=== PATIENT | male | born 1985 | race Hispanic/Latino ===

== ENCOUNTER 2018-10-09 01:47 | Emergency (ER) | payer OTHER ==
[2018-10-09] MEDS ORDERED: TORADOL IV ONE (01:53)
--- NOTE | 2018-10-09 02:57 | Emergency Department Report ---
ED General Adult HPI - General Chief complaint: Back Pain/Injury Stated complaint: FLANK PAIN Time Seen by Provider: 10/09/18 02:44 Source: patient, family, RN notes reviewed Mode of arrival: Ambulatory Limitations: No Limitations - History of Present Illness Initial comments: This is a 32-year-old gentleman, not known to this provider previously, does not have a local primary care doctor, denies chronic medical conditions, presented to the emergency room with a history of resolved flank pain that radiates to the right suprapubic region. It started suddenly at 12:30 this evening. It came in "waves", and was sharp, and did not have any relief, regardless of what position the patient. Patient was given ketorolac in the emergency room, which improved his symptoms. He denies all pain and complaints at this point in time. He denies hematemesis, bright red blood per rectum, testicular pain, irritative/obstructive urinary symptoms. As far the patient knows, he has never had an episode of kidney stone. -: Sudden Location: abdomen, right Radiation: abdomen Severity scale (0 -10): 10 Quality: aching, other (as per history of present illness) Consistency: now resolved, colicky Improves with: medication Associated Symptoms: denies other symptoms (patient denies all other complaints at this point in time.) - Related Data Previous Rx's Medication Instructions Recorded Last Taken Type Acetaminophen [Tylenol Arthritis] 650 mg PO Q6HR PRN #30 tablet.er 10/09/18 Unknown Rx Ibuprofen [Motrin] 600 mg PO Q8H PRN #30 tablet 10/09/18 Unknown Rx Ondansetron [Zofran Odt] 4 mg PO Q8HR PRN #20 tab.rapdis 10/09/18 Unknown Rx Tamsulosin [Flomax] 0.4 mg PO QDAY #30 cap 10/09/18 Unknown Rx oxyCODONE [Roxicodone] 5 mg PO Q6HR PRN #15 tablet 10/09/18 Unknown Rx Allergies Allergy/AdvReac Type Severity Reaction Status Date / Time No Known Allergies Allergy Verified 10/09/18 02:45 ED Review of Systems ROS: Stated complaint: FLANK PAIN Other details as noted in HPI Comment: All other systems reviewed and negative (initially had abdominal pain, flank pain, now resolved) ED Past Medical Hx - Past Medical History Previous Medical History?: No - Surgical History Past Surgical History?: Yes Additional Surgical History: Cyst removed from thyroid - Social History Smoking Status: Never Smoker Substance Use Type: None - Medications Home Medications: Home Medications Medication Instructions Recorded Confirmed Last Taken Type Acetaminophen [Tylenol Arthritis] 650 mg PO Q6HR PRN #30 tablet.er 10/09/18 Unknown Rx Ibuprofen [Motrin] 600 mg PO Q8H PRN #30 tablet 10/09/18 Unknown Rx Ondansetron [Zofran Odt] 4 mg PO Q8HR PRN #20 tab.rapdis 10/09/18 Unknown Rx Tamsulosin [Flomax] 0.4 mg PO QDAY #30 cap 10/09/18 Unknown Rx oxyCODONE [Roxicodone] 5 mg PO Q6HR PRN #15 tablet 10/09/18 Unknown Rx ED Physical Exam - General Limitations: No Limitations General appearance: alert, in no apparent distress - Head Head exam: Present: atraumatic, normocephalic - Eye Eye exam: Present: normal appearance, EOMI. Absent: nystagmus - ENT ENT exam: Present: normal exam, normal orophraynx, mucous membranes moist, normal external ear exam - Neck Neck exam: Present: normal inspection, full ROM. Absent: tenderness, meningismus - Respiratory Respiratory exam: Present: normal lung sounds bilaterally. Absent: respiratory distress, wheezes, rales, chest wall tenderness, accessory muscle use, decreased breath sounds, prolonged expiratory - Cardiovascular Cardiovascular Exam: Present: regular rate, normal rhythm, normal heart sounds. Absent: bradycardia, tachycardia, irregular rhythm, systolic murmur, diastolic m urmur, rubs, gallop - GI/Abdominal GI/Abdominal exam: Present: soft. Absent: distended, tenderness, guarding, rebound, rigid, pulsatile mass - Rectal Rectal exam: Present: deferred - exam: Present: normal inspection, other (chaperoned by JENNIFER Kaur). Absent: testicular tenderness External exam: Present: normal external exam, other (there is no testicular tenderness. There is normal testicular lie bilaterally. There is normal cremasteric reflex bilaterally.) - Extremities Exam Extremities exam: Present: normal inspection, full ROM, other (2+ pulses noted in the bilateral upper, lower extremities. Compartments soft. No long bony tenderness. The pelvis is stable.). Absent: tenderness, pedal edema, joint swelling, calf tenderness - Back Exam Back exam: Present: normal inspection, full ROM. Absent: tenderness, CVA tenderness (R), paraspinal tenderness, vertebral tenderness - Neurological Exam Neurological exam: Present: alert, oriented X3, CN II-XII intact, other (Extraocular movements intact. Tongue midline. No facial droop. Facial sensation intact to light touch in the V1, V2, V3 distribution bilaterally. 5 and 5 strength in 4 extremities.. Sensation is intact to light touch in 4 extremities.). Absent: motor sensory deficit - Psychiatric Psychiatric exam: Present: normal affect, normal mood - Skin Skin exam: Present: warm, dry, intact, normal color. Absent: rash ED Course Vital Signs 10/09/18 10/09/18 10/09/18 01:51 02:33 04:28 Temperature 99.0 F 98.5 F 98.5 F Pulse Rate 69 65 68 Respiratory 16 25 H 18 Rate Blood Pressure 117/58 129/83 Blood Pressure 129/83 131/78 [Left] O2 Sat by Pulse 100 100 98 Oximetry - Reevaluation(s) Reevaluation #1: 10/09/18 03:26 Differential diagnosis, including but not limited to: Renal colic, AAA, constipation, appendicitis Assessment and plan: 32-year-old gentleman with probable first episode of renal colic. He has no symptoms at this point in time. He has no abdominal tenderness, no pulsatile abdominal mass, and no lower extremity physical exam fi ndings or complaints to suggest epidural compression syndrome. No abdominal tenderness, therefore doubt Appendicitis. He has a benign abdominal examination, and a benign gentle examination. Screen ing laboratory studies, urinalysis, CT scan of the abdomen and pelvis pending. Reevaluation #2: 10/09/18 03:36 Now having pain. Hydromorphone has been ordered. Reevaluation #3: 10/09/18 05:15 Urinalysis suggestive of renal colic. Laboratory studies otherwise unremarkable. CT scan consistent with renal colic. Patient feeling improved and tolerating liquid feeds at this time. He will be discharged with pain medication, nausea medication, medical expulsive therapy, and instructions to follow up with outpatient urology. ED Medical Decision Making - Lab Data Result diagrams: 10/09/18 03:00 10/09/18 03:00 Vital Signs 10/09/18 10/09/18 01:51 02:33 Temperature 99.0 F 98.5 F Pulse Rate 69 65 Respiratory 16 25 H Rate Blood Pressure 117/58 129/83 Blood Pressure 129/83 [Left] O2 Sat by Pulse 100 100 Oximetry Lab Results 10/09/18 Range/Units 03:00 WBC 8.6 (4.5-11.0) K/mm3 RBC 5.31 H (3.65-5.03) M/mm3 Hgb 15.0 (11.8-15.2) gm/dl Hct 44.6 (35.5-45.6) % MCV 84 (84-94) fl MCH 28 (28-32) pg MCHC 34 (32-34) % RDW 12.7 L (13.2-15.2) % Plt Count 155 (140-440) K/mm3 - Radiology Data Radiology results: report reviewed, image reviewed Print Report Referring Physician: DEBRA KRAUSE Patient Name: ANASTASIYA BLANKENSHIP Date of : 1985 Sex: Male Report Date: 2018-10-09 Report Status: Finalized Findings [facility] [address] [place] [address] Cat Scan Report Signed Patient: ANASTASIYA BLANKENSHIP MR#: [id number] : 1985 Acct:[id number] Age/Sex: 32 / M ADM Date: 10/09/18 Loc: ED Attending Dr: Ordering Physician: DEBRA KRAUSE MD Date of Service: 10/09/18 Procedure(s): CT abdomen pelvis wo con Accession Number(s): [id number] cc: DEBRA KRAUSE MD FINAL REPORT PROCEDURE: CT ABDOMEN PELVIS WO CON TECHNIQUE: Computerized axial tomography of the abdomen and pelvis was performed without intravenous contrast. This study is performed without intravascular contrast material and its sensitivity for abdominal and pelvic pathology, including neoplasms, inflammation, abscess, free fluid, thrombosis, arterial dissection and infarction, is reduced compared with a contrast enhanced study. HISTORY: RT flank pain stone protocol COMPARISON: No prior studies are available for comparison. FINDINGS: Visualized lower thorax: No significant abnormality. Liver: Normal size and attenuation. Spleen: Normal size and attenuation. Gallbladder and biliary system: Normal. Pancreas: Normal. Adrenals: Normal. Kidneys: There is a 2 millimeter stone at the right ureterovesical junction causing mild right hydronephrosis and hydroureter. There are no stones in the kidneys.. GI tract: There is no bowel obstruction, colitis or enteritis. The appendix is normal.. Lymph nodes and mesentery: Normal. Vasculature: Normal. Bladder: Normal. Reproductive organs: Normal. Peritoneum: There is no ascites, free air, abscess or adenopathy.. Musculoskeletal structures: No significant abnormality. Other: None. IMPRESSION: There is a 2 millimeter stone at the right ureterovesical junction causing mild right hydronephrosis and hydroureter. There are no stones in the kidneys.. There is no bowel obstruction, colitis or enteritis. The appendix is normal.. There is no ascites, free air, abscess or adenopathy.. . Transcribed By: CO Dictated By: MO GRANADOS MD Electronically Authenticated By: MO GRANADOS MD Signed Date/Time: 10/09/18 9931 Critical care attestation.: If time is entered above; I have spent that time in minutes in the direct care of this critically ill patient, excluding procedure time. ED Disposition Clinical Impression: Renal colic on right side Disposition: DC-01 TO HOME OR SELFCARE Is pt being admited?: No Does the pt Need Aspirin: No Condition: Good Instructions: Renal Colic (ED) Additional Instructions: Drink 6-8 cups of water per day. Avoid consumption of heavy, spicy foods and salty foods. Take the pain medication, nausea medication as needed/directed. Follow-up with the urology specialist within the next 3-6 weeks. Return to the emergency room right away with new, worsening or different symptoms, fevers, chills, productive vomiting, inability to tolerate liquid feeds. Prescriptions: Acetaminophen [Tylenol Arthritis] 650 mg PO Q6HR PRN #30 tablet.er PRN Reason: Pain Ibuprofen [Motrin] 600 mg PO Q8H PRN #30 tablet PRN Reason: Pain Ondansetron [Zofran Odt] 4 mg PO Q8HR PRN #20 tab.rapdis PRN Reason: Nausea oxyCODONE [Roxicodone] 5 mg PO Q6HR PRN #15 tablet PRN Reason: Pain Tamsulosin [Flomax] 0.4 mg PO QDAY #30 cap Referrals: [facility] [Provider Group] - 3-5 Days
[2018-10-09 03:19] LABS: Hematocrit 44.6 % (35.5-45.6); Mean Corpuscular HGB Conc 34 % (32-34); Mean Corpuscular Volume 84 fl (84-94); Platelet Count 155 K/mm3 (140-440); Red Blood Count 5.31 M/mm3 (3.65-5.03); Red Cell Distribution Width 12.7 % (13.2-15.2)
[2018-10-09] MEDS ORDERED: DILAUDID IV ONE (03:35)
[2018-10-09 04:10] LABS: Bilirubin,Urine NEG (Negative); Blood,Urine LG (Negative); Color,Urine Yellow (Yellow); Mucus,Urine 2+ /HPF; Sperm,Urine FEW /HPF (NP)
--- NOTE | 2018-10-09 04:53 | Cat Scan Report ---
FINAL REPORT PROCEDURE: CT ABDOMEN PELVIS WO CON TECHNIQUE: Computerized axial tomography of the abdomen and pelvis was performed without intravenous contrast. This study is performed without intravascular contrast material and its sensitivity for ab dominal and pelvic pathology, including neoplasms, inflammation, abscess, free fluid, thrombosis, art erial dissection and infarction, is reduced compared with a contrast enhanced study. HISTORY: RT flank pain stone protocol COMPARISON: No prior studies are available for comparison. FINDINGS: Visualized lower thorax: No significant abnormality. Liver: Normal size and attenuation. Spleen: Normal size and attenuation. Gallbladder and biliary system: Normal. Pancreas: Normal. Adrenals: Normal. Kidneys: There is a 2 millimeter stone at the right ureterovesical junction causing mild right hydron ephrosis and hydroureter. There are no stones in the kidneys.. GI tract: There is no bowel obstruction, colitis or enteritis. The appendix is normal.. Lymph nodes and mesentery: Normal. Vasculature: Normal. Bladder: Normal. Reproductive organs: Normal. Peritoneum: There is no ascites, free air, abscess or adenopathy.. Musculoskeletal structures: No significant abnormality. Other: None. IMPRESSION: There is a 2 millimeter stone at the right ureterovesical junction causing mild right hydronephrosis and hydroureter. There are no stones in the kidneys.. There is no bowel obstruction, colitis or enteritis. The appendix is normal.. There is no ascites, free air, abscess or adenopathy.. .
[2018-10-09 05:08] LABS: BUN/Creatinine Ratio 18; Blood Urea Nitrogen 16 mg/dL (9-20); Calcium 8.9 mg/dL (8.4-10.2); Hemolysis Index 26
[2018-10-09 05:25] VITALS: BP 112/67
== END 2018-10-09 05:41 | disposition home or self-care (01) ==
LOC: ED 01:47
DX: N20.0 Calculus of kidney (principal)
CPT/HCPCS: 36415; 74176; 80048; 81001; 82550; 85027; 96374; 99284; J1885; J1170